=== PATIENT | female | born 1960 | race Caucasian/White ===

== ENCOUNTER → 2018-01-24 09:31 | Outpatient (CLI) | payer BC ==
[2018-01-24 10:35] LABS: BASOPHILS 0.2 % (0-2); EOSINOPHILS 2.2 % (0-7); HEMOGLOBIN 14.7 g/dL (12-16); IMMATURE GRANULOCYTES 0.3 % (0-5); LYMPHOCYTES 31.3 % (15-50); MCH 30.2 pg (26.0-34.0); MCHC 33.4 g/dL (31.0-37.0); MCV 90.5 fL (80.0-100.0); MONOCYTES 4.8 % (2-11); NEUTROPHILS 61.2 % (40-80); PLATELET COUNT 266 10x3/uL (130-400); RBC 4.86 10x6/uL (4.00-5.40); RDW 13.8 % (11.5-14.5); WBC 9.4 10x3/uL (4.8-10.8)
[2018-01-24 10:52] LABS: % SATURATION 18 % (15-55); APTT 24.1 SECONDS (22.8-39.4); INR 0.96 (0.85-1.17); IRON 64 ug/dl (35-150); PROTIME 12.4 SECONDS (11.6-15.0); TOTAL IRON BIND CAPACITY 342 ug/dl (260-445); UNSAT IRON BIND CAPACITY 278 ug/dl (150-375)
[2018-01-24 11:09] LABS: ALBUMIN 3.7 g/dL (3.4-5.0); ALKALINE PHOSPHATASE 133 U/L (46-116); ALT (SGPT) 39 U/L (10-68); AMYLASE - SERUM 23 U/L (25-115); BILIRUBIN - DIRECT 0.05 mg/dL (0.00-0.30); BILIRUBIN - INDIRECT 0.25 mg/dL (0.00-1.00); CALC OSMOLALITY 288 mosm/kg (275-300); CALCIUM 9.4 mg/dL (8.5-10.1); CARBON DIOXIDE 24.5 mmol/L (21.0-32.0); CHLORIDE - SERUM 109 mmol/L (98-107); CHOL - HDL RATIO 3.8 ratio (2.3-4.1); CHOLESTEROL, TOTAL 177 mg/dL (0-200); CREATININE - SERUM 0.8 mg/dL (0.6-1.3); FERRITIN 37 ng/mL (3-244); GAMMA GT 180 U/L (5-85); GLUCOSE 137 mg/dL (74-106); HDL CHOLESTEROL 47 mg/dL (32-96); LDL CHOLESTEROL 116 mg/dL (0-100); LDL-HDL RATIO 2.5 ratio (1.5-3.5); LIPASE 95 U/L (73-393); POTASSIUM - SERUM 4.4 mmol/L (3.5-5.1); SODIUM 143 mmol/L (136-145); TRIGLYCERIDE 71 mg/dL (30-200); UREA NITROGEN 18 mg/dL (7-18); eGFR NON AFRICAN AMERICAN 78 mL/min (90-120)
[2018-01-25 07:41] LABS: HAPTOGLOBIN 145 mg/dL (34-200)
[2018-01-25 08:21] LABS: FOLATE (FOLIC ACID) - SERUM 9.4 ng/mL (>3.0)
[2018-01-25 10:19] LABS: ALPHA FETOPROTEIN -(TUMOR MRK) 4.7 ng/mL (0.0-8.3)
[2018-01-25 12:55] LABS: HEPATITIS C ANTIBODY <0.1 (0.0-0.9)
[2018-01-25 22:08] LABS: ANA REFLEX - DIRECT Negative (Negative)
[2018-01-26 15:25] LABS: MITOCHONDRIAL ANTIBODY 9.3 Units (0.0-20.0); SMOOTH MUSCLE ABS (ACTIN) 9 Units (0-19)
== END | disposition home or self-care (01) ==
LOC: D.LAB 09:31 → D.US 10:30
PROVIDERS: Internal Medicine Gastroenterology
DX: K86.1 Other chronic pancreatitis (principal); K59.00 Constipation, unspecified; R74.8 Abnormal levels of other serum enzymes; K22.70 Barrett's esophagus without dysplasia

== ENCOUNTER 2018-03-31 12:07 | Day surgery (SDC) | payer BC, MEDICARE ==
[~2018-03-31] VITALS: Ht 162.6 cm; Wt 86.4 kg
--- NOTE | ~2018-03-31 | OP ---
PATIENT NAME: TAQUERIA HAMM MEDICAL RECORD: [id number] :60 LOCATION:[facility] ADMISSION DATE: SURGEON: TANIA SUAREZ MD DATE OF OPERATION: 03/31/2018 PROCEDURE: Colonoscopy with polypectomy. REGULATORY INTERNSHIP: Tania Suarez MD SCOPE: Olympus video colonoscope. MEDICATIONS: Per TIVA. The patient received 350 mg of propofol for this procedure, O2 of 4 liters. INDICATION FOR THE PROCEDURE: History of colon polyps, chronic constipation, hematochezia. FINDINGS: Informed consent was given. The patient was made comfortable with the above medications. After reaching an adequate level of sedation by slow IV push, the patient was placed on her left side. The rectal exam revealed good sphincter tone. No fissures or fistulas were appreciated. No external skin tags were seen. The colonoscope was advanced to the cecum, where the ileocecal valve and appendiceal orifice were identified. The prep was inadequate on the right side of the colon, and for this reason, some polyps could have been missed during our inspection. On withdrawal of the scope, mucosa was carefully inspected and it was noted that the patient had a few adhesions, which did add to the difficulty of this procedure and these were felt to be in the pelvic area. Some polyps were appreciated during this procedure and the first was seen at 60 cm in the distal transverse colon. It was approximately 0.5 cm and removed with hot biopsy forceps technique. The scope was further withdrawal and in the descending colon at 45 cm, another polyp was seen and removed in the same fashion. On the left side of the colon, some AVMs were noted. These were nonhemorrhagic. Also seen at 25 cm within the colon in the sigmoid area was a polyp that was again 0.5 cm and it was removed with hot biopsy forceps technique. A few diverticula, which were very small in circumference, were noted on the left side of the colon in the sigmoid area. None were infected and the opening to these diverticula was very very small. In the rectal vault and on retroflexion, internal hemorrhoids were noted which are most likely the cause of the patient's occasional hematochezia associated with constipation. IMPRESSION: 1. Inadequate prep on the right side of the colon. For this reason, some polyps could have been missed during our inspection. 2. Mild adhesions in the pelvic area. 3. We did note spasm, which could be associated with irritable bowel syndrome, most pronounced on the left side of the colon. 4. There are few scattered AVMs on the left side of the colon. Photo documentation obtained. No bleeding. OPERATIVE REPORT [id number] TAQUERIA HAMM 5. Polyps removed as described in the text. The first was in the distal transverse colon 0.5 cm in size, removed with hot biopsy forceps technique. Descending colon polyp at 45 cm and 0.5 cm in size, removed with hot biopsy forceps technique. A 0.5-cm polyp within the sigmoid colon removed with hot biopsy forcep technique. 6. Internal hemorrhoids, which are likely the cause of bleeding. No colitis seen. PLAN: 1. The patient should follow a good high fiber diet with lots of fluid to achieve a bulky stool, also take Colace 200 mg at bedtime and for constipation MiraLax 17 grams p.o. every day, can increase to b.i.d. 2. Probiotics. 3. No nonsteroidal anti-inflammatory drugs times 14 days. TRANSINT:[id number] Voice Confirmation ID: [id number] DOCUMENT ID: [id number] cc: Dr. Johnson-archivist in [place], not found. TANIA SUAREZ MD at 1319 CC: [id number] DICTATION DATE: 03/31/18 1553 ELECTRICIAN RECTIFIER MAINTENANCE: 03/31/18 1625 [facility] 03/31/18 [id number] [place] [address]
[2018-03-31 12:56] LABS: BASOPHILS 0.1 % (0-2); EOSINOPHILS 0.8 % (0-7); HEMATOCRIT 48.1 % (36.0-48.0); HEMOGLOBIN 16.1 g/dL (12-16); IMMATURE GRANULOCYTES 0.3 % (0-5); LYMPHOCYTES 25.9 % (15-50); MCH 30.4 pg (26.0-34.0); MCHC 33.5 g/dL (31.0-37.0); MCV 90.8 fL (80.0-100.0); MEAN PLATELET VOLUME 10.6 fL (7.4-10.4); MONOCYTES 7.2 % (2-11); NEUTROPHILS 65.7 % (40-80); PLATELET COUNT 310 10x3/uL (130-400); RDW 13.4 % (11.5-14.5); WBC 14.5 10x3/uL (4.8-10.8)
[2018-03-31 13:14] LABS: CALC OSMOLALITY 280 mosm/kg (275-300); CALCIUM 9.1 mg/dL (8.5-10.1); CARBON DIOXIDE 29.2 mmol/L (21.0-32.0); CHLORIDE - SERUM 103 mmol/L (98-107); CREATININE - SERUM 0.8 mg/dL (0.6-1.3); GLUCOSE 116 mg/dL (74-106); POTASSIUM - SERUM 4.1 mmol/L (3.5-5.1); SODIUM 140 mmol/L (136-145); UREA NITROGEN 14 mg/dL (7-18); eGFR NON AFRICAN AMERICAN 78 mL/min (90-120)
[2018-03-31 14:52] VITALS: BP 103/64; Ht 162.6 cm; Wt 86.4 kg
== END 2018-03-31 17:00 | disposition home or self-care (01) ==
LOC: D.OPS 12:07
PROVIDERS: Internal Medicine Gastroenterology
DX: D12.5 Benign neoplasm of sigmoid colon (principal); K63.5 Polyp of colon; K55.20 Angiodysplasia of colon without hemorrhage; K57.30 Diverticulosis of large intestine without perforation or abscess without bleeding; K64.8 Other hemorrhoids; K58.1 Irritable bowel syndrome with constipation; Z01.812 Encounter for preprocedural laboratory examination

== ENCOUNTER 2019-01-17 08:52 | Day surgery (SDC) | payer MEDICARE ==
[~2019-01-17] VITALS: Ht 162.6 cm; Wt 90.9 kg
--- NOTE | ~2019-01-17 | OP ---
PATIENT NAME: TAQUERIA HAMM MEDICAL RECORD: [id number] :60 LOCATION:[facility] ADMISSION DATE: SURGEON: TANIA SUAREZ MD DATE OF OPERATION: 01/17/2019 PROCEDURE: EGD with biopsy. [employer] OPERATOR: Tania Suarze MD SCOPE: Olympus video gastroscope. MEDICATIONS: Per TIVA anesthesia, the patient received 200 mg of propofol IV push for this procedure, O2 of 4 liters. INDICATION FOR THE PROCEDURE: Nunez's esophagus, worsening symptoms of gastroesophageal reflux disease. FINDINGS AND DESCRIPTION OF PROCEDURE: Informed consent was given. The patient was made comfortable with the above medications. After reaching an adequate level of sedation by slow IV push, the patient was placed on her left side. The endoscope was then advanced under direct visualization through the posterior pharyngeal area and advanced to the distal esophagus. Evidence of Nunez's esophagus was noted, but no ulcers or erosions were appreciated. Biopsies were obtained. On entering the stomach, the patient had multiple small ulcers without visible vessels and not actively bleeding in the antrum as well as the stomach body. Photo documentation was obtained and a biopsy was taken at the antral area looking for the presence of Helicobacter pylori. Also, noted were few scattered erosions throughout the gastric mucosa significant for erosive gastritis. On entering the duodenum inflammation was noted within the duodenal bulb and again within the second portion of the duodenum and separate biopsies were taken of these areas. No ulcers were appreciated. IMPRESSION: 1. Nunez's esophagus, reflux esophagitis, biopsied. 2. Multiple gastric ulcers within the antrum and stomach body. Biopsy taken within the antrum looking for Helicobacter pylori. 3. Erosive gastritis. 4. Mild duodenitis in the duodenal bulb, biopsied. 5. Mild duodenitis within the second portion of the duodenum, biopsied. PLAN: 1. We will ask the patient to have an EGD in 2 months to document healing of ulcers. 2. The patient to follow reflux precautions stringently, both dietary and positional with her history of Nunez's esophagus, caution with chocolate, tomato, citrus, caffeine, fatty foods, peppermint. No tobacco, no alcohol. The patient should sit up for 2 hours after every meal and sleep with the head of the bed elevated should she reflux at nighttime hours. 3. We will continue pantoprazole at a dose of 40 mg p.o. every morning and increase ranitidine at 300 mg p.o. at bedtime. 4. Caution with anti-inflammatory drugs. OPERATIVE REPORT [id number] TAQUERIA HAMM TRANSINT:[id number] Voice Confirmation ID: [id number] DOCUMENT ID: [id number] TANIA SUAREZ MD CC: BIRGIT ZHOU [id number] DICTATION DATE: 01/17/19 1207 SKIP TRACER: 01/17/19 1304 [facility] 01/17/[address] [id number]
[2019-01-17 10:09] LABS: CALC OSMOLALITY 292 mosm/kg (275-300); CARBON DIOXIDE 28.7 mmol/L (21.0-32.0); CHLORIDE - SERUM 108 mmol/L (98-107); CREATININE - SERUM 0.8 mg/dL (0.6-1.3); GLUCOSE 150 mg/dL (74-106); POTASSIUM - SERUM 3.8 mmol/L (3.5-5.1); SODIUM 145 mmol/L (136-145); UREA NITROGEN 15 mg/dL (7-18); eGFR NON AFRICAN AMERICAN 78 mL/min (90-120)
[2019-01-17 10:12] LABS: HEMATOCRIT 42.7 % (36.0-48.0); HEMOGLOBIN 14.1 g/dL (12-16); MCH 30.1 pg (26.0-34.0); MCV 91.2 fL (80.0-100.0); MEAN PLATELET VOLUME 10.8 fL (7.4-10.4); RBC 4.68 10x6/uL (4.00-5.40); RDW 13.5 % (11.5-14.5); WBC 9.9 10x3/uL (4.8-10.8)
[2019-01-17 10:32] VITALS: BP 120/77; Ht 162.6 cm; Wt 90.9 kg
[2019-01-17] MEDS ORDERED: CELEBREX200 MG PO (10:52)
[2019-01-17] MEDS ORDERED: WIXELA INHUB (10:53)
[2019-01-17] MEDS ORDERED: CYCLOBENZAPRINE10 MG PO (10:54)
[2019-01-17] MEDS ORDERED: NEURONTIN 300300 MG PO (10:56)
[2019-01-17] MEDS ORDERED: PROTONIX40 MG PO (10:57)
[2019-01-17] MEDS ORDERED: LIPITOR20 MG PO (10:57)
[2019-01-17] MEDS ORDERED: PLAVIX75 MG PO (10:58)
[2019-01-17] MEDS ORDERED: HYDROCODON-ACE1 EA10 PO (10:58)
[2019-01-17] MEDS ORDERED: SINGULAIR10 MG PO (10:59)
[2019-01-17] MEDS ORDERED: ADVAIR DISKU AER 250 (11:00)
[2019-01-17] MEDS ORDERED: SPIRIVA RESPIMAT4 G1 INH (11:00)
--- NOTE | 2019-01-17 13:10 | NUR ---
1225-RECD FROM GI LAB. ALERT IV PATENT 1230-DR CHO IN TO REPORT FINDINGS 1250-TOLDERATES LIQUIDS WITHOUT NAUSE 1255-IV D/C, VOIDS AND DRESSES 1300-D/C INSTRUCTIONS REVIEWED AND D.C. HOME VIA WHEELCHAIR WITH SPOUSE.
== END 2019-01-17 13:05 | disposition home or self-care (01) ==
LOC: D.OPS 08:52
PROVIDERS: Anesthesiology; ATTEND Internal Medicine Gastroenterology
DX: K22.70 Barrett's esophagus without dysplasia (principal); K21.0 Gastro-esophageal reflux disease with esophagitis; K25.9 Gastric ulcer, unspecified as acute or chronic, without hemorrhage or perforation; K29.00 Acute gastritis without bleeding; K29.80 Duodenitis without bleeding; Z01.812 Encounter for preprocedural laboratory examination